=== PATIENT | female | born 1990 | race Caucasian/White ===

== ENCOUNTER 2017-03-08 19:18 | Emergency (ER) | payer MEDICAID ==
[2017-03-08 19:33] VITALS: BP 145/77
--- NOTE | 2017-03-08 19:45 | UC ---
Skin Complaint HPI - HPI Summary HPI Summary: 27 year old female presents with complains of rash on her feet secondary to insect bites. - History of Current Complaint Chief Complaint: UCSkin Time Seen by Provider: 03/08/17 19:38 Stated Complaint: BUG BITES-THEN RASH, Hx Last Menstrual Period: 02/27/17 - Allergy/Home Medications Allergies/Adverse Reactions: Allergies Allergy/AdvReac Type Severity Reaction Status Date / Time Amoxicillin Allergy Severe SWOLLEN Verified 02/16/13 19:23 THROAT, VOMITING Penicillins [PCN] Allergy Vomiting Verified 02/16/13 19:23 Sulfa Drugs Allergy Swelling Verified 02/16/13 19:23 Of Face,Lips,& Throat "PAIN MED" Allergy Severe Vomiting Uncoded 02/16/13 19:23 Home Medications: Home Medications Multiple Vitamin [Multi Vitamin] 1 tab PO DAILY 03/08/17 [History Confirmed 09/23] Review of Systems Constitutional: Negative Skin: Other - excoriating rash on both feet Eyes: Negative ENT: Negative Respiratory: Negative Cardiovascular: Negative Gastrointestinal: Negative Genitourinary: Negative Motor: Negative Neurovascular: Negative Musculoskeletal: Negative Neurological: Negative Psychological: Negative All Other Systems Reviewed And Are Negative: Yes PMH/Surg Hx/FS Hx/Imm Hx Previously Healthy: Yes - Surgical History Surgical History: Yes Surgery Procedure, Year, and Place: Tonsillectomy & adenoidectomy c/sec - Social History Alcohol Use: None Substance Use Type: None Smoking Status (MU): Never Smoked Tobacco - Immunization History Most Recent Influenza Vaccination: unk Most Recent Tetanus Shot: unk Most Recent Pneumonia Vaccination: none Physical Exam Triage Information Reviewed: Yes Vital Signs: Initial Vital Signs Temp 36.9 C 03/08/17 19:31 Pulse 86 03/08/17 19:31 Resp 16 03/08/17 19:31 BP 145/77 03/08/17 19:31 Pulse Ox 100 03/08/17 19:31 Eye Exam: Normal ENT Exam: Normal Dental Exam: Normal Neck exam: Normal Neck: Positive: 1 Respiratory Exam: Normal Cardiovascular Exam: Normal Abdominal Exam: Normal Musculoskeletal Exam: Normal Neurological Exam: Normal Psychological Exam: Normal Skin: Positive: Other - excoriating rash on both feet Course/Dx - Diagnoses Provider Diagnoses: insect bilateral feet Discharge - Discharge Plan Condition: Stable Disposition: HOME Prescriptions: DOXYcycline CAP(*) [DOXYcycline 100MG CAP(*)] 100 mg PO BID #14 cap Methylprednisolone [Medrol Dosepak 4 MG*] 4 mg PO .SEE GONSALO INSTRUCTION #21 tab Triamcinolone 0.1% CREAM(NF) [Kenalog Cream 0.1%(NF)] 1 applic TOPICAL BID PRN # 90 gm PRN Reason: Itching Patient Education Materials: Insect Bite or Sting (ED) Referrals: Nena Oglesby MD [Primary Care Provider] - If Needed
== END 2017-03-08 19:53 | disposition home or self-care (01) ==
LOC: UCEAST 19:18
DX: S90.862A Insect bite (nonvenomous), left foot, initial encounter (principal); S90.861A Insect bite (nonvenomous), right foot, initial encounter; W57.XXXA Bitten or stung by nonvenomous insect and other nonvenomous arthropods, initial encounter; Y93.9 Activity, unspecified; Y92.9 Unspecified place or not applicable; Y99.9 Unspecified external cause status
CPT/HCPCS: 99212; G0463

== ENCOUNTER 2017-05-20 16:28 | Emergency (ER) | payer OTHER ==
[2017-05-20 16:36] VITALS: BP 136/72
--- NOTE | 2017-05-20 17:42 | RAD ---
INDICATION: Left wrist pain. TECHNIQUE: 3 views of the left wrist were obtained. FINDINGS: The bones are in normal alignment. No fracture is seen. Joint spaces appear maintained. IMPRESSION: NO EVIDENCE FOR FRACTURE, IF THE PATIENT'S SYMPTOMS PERSIST, RECOMMEND FOLLOW-UP IMAGING.
--- NOTE | 2017-05-28 17:23 | UC ---
Laura Lozada Thomas, scribed for Kina Rutledge DO on 05/20/17 at 1713 . Upper Extremity HPI - HPI Summary HPI Summary: The pt is a 27 y/o F [place] [facility] [place]/o left wrist pain s/p an injury that occurred three days ago. The patients pain suddenly began when she twisted her wrist while holding a heavy object while unloading a truck. Later on during the same day, the patient attempted to pick pack worker a coffee cup but was unable to and she heard a snap. The pt rates the pain 7/10. The pain is aggravated by movement and is alleviated by rest. She has no pain when she keeps her hand still. The patient has treated the pain with ibuprofen [employer]. She additionally c/ o numbness to her left hand fingertips. She denies F/S/C, cough, abd pain, or any other complaints. - History of Current Complaint Chief Complaint: UCUpperExtremity Stated Complaint: WRIST INJURY Hx Obtained From: Patient Hx Last Menstrual Period: 05/20/17 Onset/Duration: Sudden Onset, Lasting Days - injury was three days ago, Still Present Pain Intensity: 7 Pain Scale Used: 0-10 Numeric Location Of Pain: Is Discrete @ - left wrist Aggravating Factor(s): Movement Alleviating Factor(s): Nothing Associated Signs And Symptoms: Positive: Numbness/Tingling - numbness to her left hand fingertips - Allergies/Home Medications Allergies/Adverse Reactions: Allergies Allergy/AdvReac Type Severity Reaction Status Date / Time Amoxicillin Allergy Severe SWOLLEN Verified 02/16/13 19:23 THROAT, VOMITING Penicillins [PCN] Allergy Vomiting Verified 02/16/13 19:23 Sulfa Drugs Allergy Swelling Verified 02/16/13 19:23 Of Face,Lips,& Throat "PAIN MED" Allergy Severe Vomiting Uncoded 02/16/13 19:23 Home Medications: Home Medications Control Pill 05/20/17 [History] PMH/Surg Hx/FS Hx/Imm Hx Previously Healthy: Yes - NEGATIVE: DM, CO - Surgical History Surgical History: Yes Surgery Procedure, Year, and Place: Tonsillectomy & adenoidectomy c/sec - Family History Known Family History: Negative: Hypertension, Diabetes - Social History Alcohol Use: None Substance Use Type: None Smoking Status (MU): Never Smoked Tobacco - Immunization History Most Recent Influenza Vaccination: unk Most Recent Tetanus Shot: unk Most Recent Pneumonia Vaccination: none Review of Systems Constitutional: Other - NEGATIVE: fever Musculoskeletal: Other: - Wrist pain onset three days ago Is Patient Immunocompromised?: No All Other Systems Reviewed And Are Negative: Yes Physical Exam Triage Information Reviewed: Yes Appearance: Well-Appearing, No Pain Distress, Well-Nourished Vital Signs: Initial Vital Signs Temp 97.7 F 05/20/17 16:32 Pulse 83 05/20/17 16:32 Resp 18 05/20/17 16:32 BP 136/72 05/20/17 16:32 Pulse Ox 99 05/20/17 16:32 Vital Signs Reviewed: Yes Eyes: Positive: Conjunctiva Clear. Negative: Discharge ENT: Positive: Hearing grossly normal. Negative: Muffled/hoarse voice Neck exam: Normal Neck: Positive: Supple Respiratory: Positive: Lungs clear, Normal breath sounds, No respiratory distress, No accessory muscle use Cardiovascular: Positive: RRR, No Murmur Musculoskeletal Exam: Normal Neurological: Positive: Alert, Muscle Tone Normal Psychological Exam: Normal Psychological: Positive: Age Appropriate Behavior Skin Exam: Normal Skin: Positive: Other - Warm, dry, normal color Diagnostics - Radiology Wrist XR Xray Interpretation: No Acute Changes - NO EVIDENCE FOR FRACTURE, IF THE PATIENT 'S SYMPTOMS PERSIST, RECOMMEND FOLLOW-UP IMAGING. [facility] physician has read this report and agrees. Radiology Interpretation Completed By: Radiologist Upper Extremity Course/Dx - Course Course Of Treatment: The pt is a 27 y/o F c/o left wrist pain s/p an injury that occurred three days ago. Wrist XR is negative for fracture. Patient's pain will be treated as a suspected schaphoid fracture due to her extreme tenderness until she follows up with an orthopedist in a week. Medications reviewed this visit. High blood pressure noted. - Differential Dx/Diagnosis Provider Diagnoses: wrist sprain, r/o scaphoid fx, Elevated blood pressure without a diagnosis of hypertension, Discharge - Discharge Plan Condition: Stable Disposition: HOME Prescriptions: Naproxen TAB* [Naprosyn 250 mg TAB*] 500 mg PO BID #14 tab Patient Education Materials: Splint Care (ED), Suspected Fracture (ED), Wrist Sprain (ED) Referrals: Rajendra Whiting MD [Medical Doctor] - (follow up in 4-6 days for re- evaluation) Nena Oglesby MD [Primary Care Provider] - If Needed Additional Instructions: Your history and exam is suspicous for possible occult fracture of the scaphoid bone. This is a fracture that can have a bad outcome if not properly immobilized. So, we will treat this as a fracture until proven otherwise. That means that you must wear the splint 24 hours a day until the ortho provider tells you otherwise. It will take 5-7 days to establish whether or not your bone is fractured. ANTI-INFLAMMATORY MEDICATION: You have received a prescription for an antiinflammatory agent. This is an excellent, safe drug for pain control. In addition, it has potent antiinflammatory effects which are beneficial, especially in the treatment of injuries, arthritis, or tendonitis. It's best to take this medicine with food. Persons with ulcer disease or allergy to aspirin should notify their physician of this before taking this drug. Take the medication exactly as prescribed. Don't take additional doses unless instructed to do so by your doctor. If you develop wheezing, shortness of breath, hives, faintness, stomach pain, vomiting, or dark black stools, return for re-evaluation at once. Your blood pressure was elevated at this visit. That does not mean you have hypertension, it is probably due to your current condition. Please follow up with your primary care provider. The documentation as recorded by the Laura renteria Thomas accurately reflects the service I personally performed and the decisions made by me, Kina Rutledge DO.
== END 2017-05-20 18:06 | disposition home or self-care (01) ==
LOC: UCEAST 16:28
DX: S63.502A Unspecified sprain of left wrist, initial encounter (principal); X50.1XXA Overexertion from prolonged static or awkward postures, initial encounter; Y93.89 Activity, other specified; Y92.9 Unspecified place or not applicable; R03.0 Elevated blood-pressure reading, without diagnosis of hypertension; Z88.0 Allergy status to penicillin; Z88.2 Allergy status to sulfonamides
CPT/HCPCS: 99212; G0463

== ENCOUNTER 2017-10-26 09:51 | Emergency (ER) | payer OTHER ==
[2017-10-26 10:10] VITALS: BP 126/92
--- NOTE | 2017-10-26 10:54 | RAD ---
INDICATION: Productive cough. 2 views of the chest demonstrate no mediastinal shift. Heart is of normal size and configuration. Lung coats are clear. IMPRESSION: No active cardiopulmonary disease is noted.
--- NOTE | 2017-10-26 15:07 | UC ---
Main Lozada Angela, scribed for Raghav Rodriguez MD on 10/26/17 at 1027 . General HPI - HPI Summary HPI Summary: This pt is a 27 y/o female presenting to [facility] c/o productive cough, runny nose, and body aches for the last couple of days. She additionally notes fever. Pt has a history of exercise induced asthma. Denies sore throat, SOB, abd pain. Denies any other PMHx. Denies tobacco, alcohol, or drug use. - History of Current Complaint Chief Complaint: UCRespiratory Stated Complaint: RESP Time Seen by Provider: 10/26/17 09:56 Hx Obtained From: Patient Hx Last Menstrual Period: 10/12/17 Onset/Duration: Lasting Days, Still Present Timing: Constant Current Severity: Moderate Pain Intensity: 4 Aggravating: nothing Alleviating: nothing Associated Signs & Symptoms: Positive: Cough, Fever, Other - POS: runny nose, body aches. NEG: sore throat. Negative: Abdominal Pain, SOB - Allergy/Home Medications Allergies/Adverse Reactions: Allergies Allergy/AdvReac Type Severity Reaction Status Date / Time amoxicillin Allergy Swelling Verified 10/26/17 10:04 Of Face,Lips,& Throat Penicillins Allergy Swelling Verified 10/26/17 10:04 Of Face,Lips,& Throat Sulfa (Sulfonamide Allergy Swelling Verified 10/26/17 10:04 Antibiotics) Of Face,Lips,& Throat "PAIN MED" Allergy Severe Vomiting Uncoded 10/26/17 10:04 PMH/Surg Hx/FS Hx/Imm Hx Other Endocrine History: DENIES: diabetes Other Cardiovascular History: DENIES: HTN Respiratory History: Asthma - exercise induced - Surgical History Surgical History: Yes Surgery Procedure, Year, and Place: Tonsillectomy & adenoidectomy; ; [place] Teeth extraction - Family History Known Family History: Negative: Hypertension, Diabetes - Social History Alcohol Use: None Substance Use Type: None Smoking Status (MU): Never Smoked Tobacco - Immunization History Most Recent Influenza Vaccination: unk Most Recent Tetanus Shot: unk Most Recent Pneumonia Vaccination: none Review of Systems Constitutional: Fever Skin: Negative Eyes: Negative ENT: Nasal Discharge, Other - NEG: sore throat Respiratory: Cough Cardiovascular: Negative Gastrointestinal: Negative Genitourinary: Negative Motor: Negative Neurovascular: Negative Musculoskeletal: Negative Neurological: Negative Psychological: Negative Is Patient Immunocompromised?: No All Other Systems Reviewed And Are Negative: Yes Physical Exam - Summary Physical Exam Summary: VITAL SIGNS: Reviewed. GENERAL: Patient is a well-developed and nourished female who is lying comfortable in the stretcher. Patient is not in any acute respiratory distress. HEAD AND FACE: Normocephalic. Positive for runny nose. EYES: PERRLA, EOMI x 2. EARS: Hearing grossly intact. MOUTH: Oropharynx within normal limits. NECK: Supple, trachea is midline, no adenopathy, no JVD, no carotid bruit. CHEST: Symmetric, no tenderness at palpation LUNGS: Clear to auscultation bilaterally. No wheezing or crackles. CVS: Regular rate and rhythm, S1 and S2 present, no murmurs or gallops appreciated. ABDOMEN: Soft, non-tender. Bowel sounds are normal. No abdominal abnormal pulsations. EXTREMITIES: Full ROM in all major joints, no edema, no cyanosis or clubbing. NEURO: Alert and oriented x 3. No acute neurological deficits. Speech is normal and follows commands. SKIN: Dry and warm Triage Information Reviewed: Yes Vital Signs: Initial Vital Signs Temp 98.1 F 10/26/17 10:05 Pulse 78 10/26/17 10:05 Resp 16 10/26/17 10:05 BP 126/92 10/26/17 10:05 Pulse Ox 100 10/26/17 10:05 Vital Signs Reviewed: Yes Diagnostics - Radiology Chest XR Xray Interpretation: No Acute Changes - IMPRESSION: No active cardiopulmonary disease is noted. Dr. Rodriguez has reviewed this radiology report. Radiology Interpretation Completed By: Radiologist Re-Evaluation - Re-Evaluation First Eval Re-Evaluation Time: 10:59 Comment: I reviewed the test and XR results with the pt. Course/Dx - Course Course Of Treatment: This pt is a 27 y/o female presenting to [facility] c/o productive cough, runny nose, and body aches for the last couple of days. She additionally notes fever. Pt has a history of exercise induced asthma. Denies any other PMHx. Denies tobacco, alcohol, or drug use. Chest XR shows no active cardiopulmonary disease is noted. Influenza A and B are both negative. I discussed all the findings and test results with the patient. Pt was instructed to return to the urgent care or go to ER immediately if any of the symptoms return or worsens. Plan of care was discussed with the patient and pt understands and agrees. All questions were answered to patient satisfaction. There were no further complaints or concerns. Pt will be discharged to home with follow up from PCP. She was given a prescription for Tessalon Perles. Pt is hemodynamically stable, alert and oriented x3. The patient was found to have increased blood pressure in UC. The patient will follow up with PCP for better control of BP. - Differential Dx - Multi-Symptom Provider Diagnoses: Cough. Upper respiratory infection Discharge - Sign-Out/Discharge Documenting (check all that apply): Discharge - Discharge Plan Condition: Stable Disposition: HOME Prescriptions: Benzonatate CAP* [Tessalon 100 MG CAP*] 100 mg PO TID PRN #12 cap PRN Reason: Cough Patient Education Materials: Upper Respiratory Infection (DC) Referrals: Nena Oglesby MD [Primary Care Provider] - Additional Instructions: FOLLOW UP WITH YOUR PRIMARY CARE PROVIDER WITHIN ONE WEEK FOR HIGH BLOOD PRESSURE NOTED TODAY. RETURN TO URGENT CARE OR THE ED FOR ANY WORSENING OR NEW SYMPTOMS. The documentation as recorded by the Main renteria Angela accurately reflects the service I personally performed and the decisions made by , Raghav Rodriguez MD.
== END 2017-10-26 11:08 | disposition home or self-care (01) ==
LOC: UCEAST 09:51
DX: R05 Cough (principal); J06.9 Acute upper respiratory infection, unspecified; Z88.3 Allergy status to other anti-infective agents; Z88.0 Allergy status to penicillin; Z88.2 Allergy status to sulfonamides
CPT/HCPCS: 71046; 87502; 99212; G0463

== ENCOUNTER 2018-01-30 18:06 | Emergency (ER) | payer OTHER ==
[2018-01-30 20:07] LABS: Urine Appearance Clear; Urine Blood 3+ (Negative); Urine Color Yellow; Urine Ketones 1+ (Negative); Urine Protein 1+(30 mg/dL) (Negative); Urine Urobilinogen Negative (Negative)
[2018-01-30 20:11] LABS: ABS Basophils 0.1 10^3/ul (0-0.2); ABS Eosinophils 0.1 10^3/ul (0-0.6); ABS Lymphocytes 2.7 10^3/ul (1.0-4.8); ABS Monocytes 0.7 10^3/ul (0-0.8); ABS Neutrophils 7.6 10^3/ul (1.5-7.7); ABS Nucleated RBC 0 10^3/ul; Eosinophil % 0.8 % (0-6); Hematocrit 42 % (35-47); Hemoglobin 14.2 g/dl (12.0-16.0); Mean Corpuscular HGB Conc 34 g/dl (31-36); Mean Corpuscular Hemoglobin 28 pg (27-31); Mean Corpuscular Volume 82 fL (80-97); Mean Platelet Volume 7.7 um3 (7.4-10.4); Nucleated Red Blood Cells % 0.1; Platelet Count 341 10^3/ul (150-450); Red Blood Count 5.12 10^6/ul (4.00-5.40); Red Cell Distribution Width 14 % (10.5-15); White Blood Count 11.1 10^3/ul (3.5-10.8)
[2018-01-30 20:32] LABS: EGFR Non-African American 72.9 (>60)
[2018-01-30 22:16] VITALS: BP 118/83
--- NOTE | 2018-01-31 05:41 | ED ---
Grant Lozada Jacob, scribed for Inessa Rich MD on 01/30/18 at 2132 . GI/ HPI - HPI Summary HPI Summary: Pt is a 27 y/o female presenting to ED c/o vaginal bleeding. Bleeding began a week ago and states that it has been constant since onset. She notes suprapubic pain which she describes as "pinching" and waxing and waning. She takes control pills. Her control pill cycle regimen is to take pills for two months straight and then go a week without taking pills. She states that she has never experienced vaginal bleeding while taking her current regimen of control pills. Pt believes her LNMP was sometime in December and is not . - History of Current Complaint Chief Complaint: EDVaginalBleeding Time Seen by Provider: 01/30/18 21:20 Stated Complaint: HEAVY BLEEDING Hx Obtained From: Patient Hx Last Menstrual Period: 10/12/17 Onset/Duration: Started Weeks Ago - 1 week ago Timing: Constant Current Severity: Moderate Pain Intensity: 5 Location of Pain: Suprapubic Pain Characteristics: Other: - described as pinching Associated Signs and Symptoms: Positive: Negative Aggravating Factor(s): Nothing Alleviating Factor(s): Nothing - Allergy/Home Medications Allergies/Adverse Reactions: Allergies Allergy/AdvReac Type Severity Reaction Status Date / Time amoxicillin Allergy Swelling Verified 01/30/18 18:39 Of Face,Lips,& Throat Penicillins Allergy Swelling Verified 01/30/18 18:39 Of Face,Lips,& Throat Sulfa (Sulfonamide Allergy Swelling Verified 01/30/18 18:39 Antibiotics) Of Face,Lips,& Throat "PAIN MED" Allergy Severe Vomiting Uncoded 01/30/18 18:39 Home Medications: Home Medications l-Norgest/E.estradiol-E.estrad [Levonorgestrel/Ethinyl Es 0.15-0.03 &0.01 mg] 1 tab PO DAILY 01/30/18 [History Confirmed 01/30/18] PMH/Surg Hx/FS Hx/Imm Hx Endocrine/Hematology History: Denies: Hx Diabetes, Hx Thyroid Disease Cardiovascular History: Denies: Hx Hypertension Respiratory History: Denies: Hx Asthma, Hx Chronic Obstructive Pulmonary Disease (COPD) GI History: Denies: Hx Ulcer - Surgical History Surgery Procedure, Year, and Place: Tonsillectomy & adenoidectomy; ; [place] Teeth extraction Infectious Disease History: No Infectious Disease History: Denies: Hx Clostridium Difficile, Hx Hepatitis, Hx Human Immunodeficiency Virus (HIV), Hx of Known/Suspected MRSA, Hx Shingles, Hx Tuberculosis, Hx Known/ Suspected VRE, Hx Known/Suspected VRSA, History Other Infectious Disease, Traveled Outside the [place] in Last 30 Days - Family History Known Family History: Negative: Hypertension, Diabetes - Social History Alcohol Use: None Substance Use Type: Reports: None Smoking Status (MU): Never Smoked Tobacco Review of Systems Negative: Fever Positive: pain - suprapubic pain, other - vaginal bleeding All Other Systems Reviewed And Are Negative: Yes Physical Exam - Summary Physical Exam Summary: VITAL SIGNS: Reviewed. GENERAL: Patient is a well-developed and nourished female who is lying comfortable in the stretcher. Patient is not in any acute respiratory distress. HEAD AND FACE: No signs of trauma. No ecchymosis, hematomas or skull depressions. No sinus tenderness. EYES: PERRLA, EOMI x 2, No injected conjunctiva, no nystagmus. EARS: Hearing grossly intact. Ear canals and tympanic membranes are within normal limits. MOUTH: Oropharynx within normal limits. NECK: Supple, trachea is midline, no adenopathy, no JVD, no carotid bruit, no c- spine tenderness, neck with full ROM. CHEST: Symmetric, no tenderness at palpation LUNGS: Clear to auscultation bilaterally. No wheezing or crackles. CVS: Regular rate and rhythm, S1 and S2 present, no murmurs or gallops appreciated. ABDOMEN: Soft, non-tender. No signs of distention. No rebound no guarding, and no masses palpated. Bowel sounds are normal. EXTREMITIES: FROM in all major joints, no edema, no cyanosis or clubbing. NEURO: Alert and oriented x 3. No acute neurological deficits. Speech is normal and follows commands. SKIN: Dry and warm Triage Information Reviewed: Yes Vital Signs On Initial Exam: Initial Vitals Temp Pulse Resp BP Pulse Ox 96.6 F 84 17 138/95 100 01/30/18 18:34 01/30/18 18:34 01/30/18 18:34 01/30/18 18:34 01/30/18 18:34 Vital Signs Reviewed: Yes Diagnostics - Vital Signs Vital Signs Temp Pulse Resp BP Pulse Ox 06/26/18 20:37 99.3 F 87 18 133/88 100 01/30/18 18:34 96.6 F 84 17 138/95 100 - Laboratory Lab Results: Lab Results 01/30/18 01/30/18 01/30/18 Range/Units 19:40 20:02 20:02 WBC 11.1 H (3.5-10.8) 10^3/ul RBC 5.12 (4.00-5.40) 10^6/ul Hgb 14.2 (12.0-16.0) g/dl Hct 42 (35-47) % MCV 82 (80-97) fL MCH 28 (27-31) pg MCHC 34 (31-36) g/dl RDW 14 (10.5-15) % Plt Count 341 (150-450) 10^3/ul MPV 7.7 (7.4-10.4) um3 Neut % (Auto) 68.4 (38-83) % Lymph % (Auto) 24.0 L (25-47) % [place] % (Auto) 6.2 (0-7) % Eos % (Auto) 0.8 (0-6) % Baso % (Auto) 0.6 (0-2) % Absolute Neuts (auto) 7.6 (1.5-7.7) 10^3/ul Absolute Lymphs (auto) 2.7 (1.0-4.8) 10^3/ul Absolute Monos (auto) 0.7 (0-0.8) 10^3/ul Absolute Eos (auto) 0.1 (0-0.6) 10^3/ul Absolute Basos (auto) 0.1 (0-0.2) 10^3/ul Absolute Nucleated RBC 0 10^3/ul Nucleated RBC % 0.1 Sodium 139 (135-145) mmol/L Potassium 3.6 (3.5-5.0) mmol/L Chloride 105 (101-111) mmol/L Carbon Dioxide 25 (22-32) mmol/L Anion Gap 9 (2-11) mmol/L BUN 9 (6-24) mg/dL Creatinine 0.93 (0.51-0.95) mg/dL Est GFR ( Amer) 88.2 (>60) Est GFR (Non-Af Amer) 72.9 (>60) BUN/Creatinine Ratio 9.7 (8-20) Glucose 87 (70-100) mg/dL Calcium 9.5 (8.6-10.3) mg/dL Total Bilirubin 0.40 (0.2-1.0) mg/dL AST 21 (13-39) U/L ALT 34 (7-52) U/L Alkaline Phosphatase 97 (34-104) U/L Total Protein 8.0 (6.4-8.9) g/dL Albumin 4.3 (3.2-5.2) g/dL Globulin 3.7 (2-4) g/dL Albumin/Globulin Ratio 1.2 (1-3) Beta HCG, Quant < 0.60 mIU/mL Urine Color Yellow Urine Appearance Clear Urine pH 5.0 (5-9) Ur Specific [place] 1.030 (1.010-1.030) Urine Protein 1+(30 mg/dl) A (Negative) Urine Ketones 1+ A (Negative) Urine Blood 3+ A (Negative) Urine Nitrate Negative (Negative) Urine Bilirubin Negative (Negative) Urine Urobilinogen Negative (Negative) Ur Leukocyte Esterase Negative (Negative) Urine WBC (Auto) Trace(0-5/hpf) (Absent) Urine RBC (Auto) 2+(6-10/hpf) A (Absent) Ur Squamous Epith Cells Present A (Absent) Urine Bacteria Absent (Absent) Urine Glucose Negative (Negative) Result Diagrams: 01/30/18 20:02 01/30/18 20:02 Lab Statement: Any lab studies that have been ordered have been reviewed, and results considered in the medical decision making process. GIGU Course/Dx - Course Assessment/Plan: Pt is a 27 y/o female presenting to ED w/ constant vaginal bleeding for a week with suprapubic pain described as "pinching" and waxing and waning in intensity. She takes control pills and has never experienced vaginal bleeding while taking her current regimen of control pills. Pt believes her LNMP was sometime in December and is not . Blood work and UA done, with reuslts including a WBC of 11.1 Urine culture sent. Pt diagnosed w/ dysfunctional uterine bleeding, discharged to home and told to follow up w/ established OBGYN. Allergies noted. - Diagnoses Provider Diagnoses: Dysfunctional uterine bleeding Discharge - Sign-Out/Discharge Documenting (check all that apply): Discharge/Admit/Transfer - discharge - Discharge Plan Condition: Stable Disposition: HOME Patient Education Materials: Dysfunctional Uterine Bleeding (ED) Referrals: No Primary Care Phys,NOPCP [Primary Care Provider] - [facility] [facility] [place]] - 2 Days Additional Instructions: Return to ED for any new or worsening symptoms. Follow up with previously established OBGYN as soon as possible The documentation as recorded by the Grant renteria Jacob accurately reflects the service I personally performed and the decisions made by Layla buchanan Abdul, MD.
== END 2018-01-30 22:15 | disposition home or self-care (01) ==
LOC: ED 18:06
DX: N93.8 Other specified abnormal uterine and vaginal bleeding (principal); Z88.0 Allergy status to penicillin; Z88.2 Allergy status to sulfonamides; Z88.8 Allergy status to other drugs, medicaments and biological substances
CPT/HCPCS: 36415; 80053; 81003; 81015; 84702; 85025; 87086; 99282

== ENCOUNTER 2020-10-26 07:45 | Inpatient (IN) ==
[2020-10-28] MEDS ORDERED: Sodium Citrate/Citric Acid LIQ 15 ML UDC ONE (06:24)
[2020-10-28] MEDS ORDERED: Sodium Citrate/Citric Acid LIQ 15 ML UDC PO ONE (07:09)
[2020-10-28] MEDS ORDERED: Oxytocin 10 UNITS/ML 1 ML VIAL ONE (07:23)
[2020-10-28] MEDS ORDERED: Sterile Water for Inj 10 ML ONE (07:23)
[2020-10-28] MEDS ORDERED: Ondansetron 4 mg VIAL 2 MG/ML 2 ml VIAL ONE (07:23)
[2020-10-28] MEDS ORDERED: Morphine PF AMP (0.5MG/ML) 5 MG/10 ML AMP ONE (07:23)
[2020-10-28] MEDS ORDERED: EPHEDrine (Pressors) 50 MG/ML VIAL ONE (07:23)
[2020-10-28] MEDS ORDERED: Phenylephrine 40 mcg/mL 10mL (400mcg) SYRINGE ONE ×2 (07:27→08:44)
[2020-10-28] MEDS ORDERED: ceFOXitin 2 GM PREMIX 50 ML IVPB ONE (08:00)
[2020-10-28] MEDS ORDERED: diPHENhydraMINE IV 50 MG/ML 1 ml VIAL (BENADRYL) IV PRN (08:53)
[2020-10-28] MEDS ORDERED: Ondansetron 4 mg VIAL 2 MG/ML 2 ml VIAL IV PRN (08:53)
[2020-10-28] MEDS ORDERED: Naloxone 0.4 mg VIAL 0.4 mg/ml 1 ml VIAL IV PRN (08:53)
[2020-10-28] MEDS ORDERED: Acetaminophen IV 1 GM/100ML 1,000 MG/100 ML VIAL IVPB PRN (08:55)
[2020-10-28] MEDS ORDERED: Dibucaine 1% OINT 28.35 GM TUBE PR PRN (09:32)
[2020-10-28] MEDS ORDERED: Glycerin ADULT 2.4 gm SUPP PR PRN (09:32)
[2020-10-28] MEDS ORDERED: Witch Hazel PAD JAR TOPICAL PRN (09:32)
[2020-10-28] MEDS ORDERED: Lactated Ringers 1000 ml BAG 1,000 ML IV SCH (10:00)
[2020-10-28] MEDS ORDERED: Oxytocin in LR 20 UNITS/1,000 ML BAG IVPB SCH (10:00)
[2020-10-28 10:49] LABS: Urine Benzodiazepine Screen None Detected (None Detect); Urine Opiates Screen None Detected (None Detect)
[2020-10-28 13:45] LABS: Urine Appearance Cloudy; Urine Bacteria Absent (Absent); Urine Bilirubin Negative (Negative); Urine Blood Negative (Negative); Urine Color Yellow; Urine Glucose Negative (Negative); Urine Ketones Negative (Negative); Urine Nitrite Negative (Negative); Urine Protein Negative (Negative); Urine Red Blood Cell 3+(>10/hpf) (Absent); Urine Specific Gravity 1.014 (1.010-1.030); Urine Squamous Epithelial Cell Present (Absent); Urine Urobilinogen Negative (Negative); Urine White Blood Cell Trace(0-5/hpf) (Absent)
[2020-10-29 06:36] LABS: ABS Eosinophils 0.1 10^3/ul (0-0.6); ABS Lymphocytes 1.3 10^3/ul (1.0-4.8); ABS Monocytes 1.1 10^3/ul (0-0.8); ABS Neutrophils 9.8 10^3/ul (1.5-7.7); Eosinophil % 0.9 %; Hematocrit 28 % (35-47); Lymphocyte % 10.6 %; Mean Corpuscular HGB Conc 33 g/dL (31-36); Mean Corpuscular Hemoglobin 25 pg (27-31); Mean Corpuscular Volume 76 fL (80-97); Mean Platelet Volume 7.6 fL (7.4-10.4); Platelet Count 294 10^3/uL (150-450); Red Blood Count 3.64 10^6 /uL (3.70-4.87); Red Cell Distribution Width 15 % (10-15); White Blood Count 12.4 10^3/uL (3.5-10.8)
[2020-10-30 08:11] VITALS: BP 134/76
== END 2020-10-30 13:02 | disposition home or self-care (01) | DRG 540 ==
LOC: MCHOB 10-28 05:49
PROVIDERS: ADMIT Obstetrics & Gynecology; ATTEND Obstetrics & Gynecology

== ENCOUNTER 2022-04-29 05:42 | Inpatient (IN) ==
[~2022-04-29 05:42] MED LIST: Clindamycin 900 MG/D5W BAG 900 MG/50 ML BAG IVPB SCH
[2022-04-29] MEDS ORDERED: Metoclopramide 5 MG/ML VIAL (10 mg) IV PRN (06:47)
[2022-04-29] MEDS ORDERED: Acetaminophen IV 1 GM/100ML 1,000 MG/100 ML BAG IV PRN (06:47)
[2022-04-29] MEDS ORDERED: Ondansetron 4 mg VIAL 2 MG/ML 2 ml VIAL IV PRN (06:47)
[2022-04-29] MEDS ORDERED: Naloxone 0.4 mg VIAL 0.4 mg/ml 1 ml VIAL IV PUSH PRN (06:47)
[2022-04-29] MEDS ORDERED: Clindamycin 900 MG/D5W BAG 900 MG/50 ML BAG IVPB ONE (07:14)
[2022-04-29] MEDS ORDERED: Sodium Citrate/Citric Acid LIQ 15 ML UDC ONE ×2 (07:21→07:22)
[2022-04-29] MEDS ORDERED: Morphine PF AMP (0.5MG/ML) 5 MG/10 ML AMP ONE (07:28)
[2022-04-29] MEDS ORDERED: Oxytocin 10 UNITS/ML 1 ML VIAL ONE ×2 (07:29→09:59)
[2022-04-29] MEDS ORDERED: Ondansetron 4 mg VIAL 2 MG/ML 2 ml VIAL ONE (07:29)
[2022-04-29] MEDS ORDERED: Dexamethasone IV 4 MG/ML VIAL 1 ml VIAL ONE (07:29)
[2022-04-29 07:39] LABS: Hematocrit 31 % (35-47); Hemoglobin 9.6 g/dL (12.0-16.0); Mean Corpuscular HGB Conc 31 g/dL (31-36); Mean Corpuscular Hemoglobin 23 pg (27-31); Mean Corpuscular Volume 74 fL (80-97); Platelet Count 377 10^3/uL (150-450); Red Cell Distribution Width 17 % (10-15); White Blood Count 13.3 10^3/uL (3.5-10.8)
[2022-04-29] MEDS ORDERED: Gentamicin ADULT 225 MG in NS 0.9% 100 ml BAG 100 ML IVPB ONE (08:00)
[2022-04-29] MEDS ORDERED: Phenylephrine 40 mcg/mL 10mL (400mcg) SYRINGE ONE (08:23)
[2022-04-29 08:56] LABS: ABS Eosinophils 0.1 10^3/ul (0-0.6); ABS Lymphocytes 2.1 10^3/ul (1.0-4.8); ABS Monocytes 0.9 10^3/ul (0-0.8); ABS Neutrophils 10.2 10^3/ul (1.5-7.7); Eosinophil % 0.5 %; Lymphocyte % 15.7 %
[2022-04-29 08:57] LABS: Hypochromasia 2+; Microcytosis 2+
[2022-04-29] MEDS ORDERED: Levalbuterol HFA INHALER MDI ONE (09:16)
[2022-04-29] MEDS ORDERED: Buffered Lidocaine 1% SYRIN 1 ml INTRADERM ONE (10:11)
[2022-04-29] MEDS ORDERED: Lactated Ringers 1000 ml BAG 1,000 ML IV ONE (10:11)
[2022-04-29] MEDS ORDERED: Glycerin ADULT 2.4 gm SUPP PR PRN (10:13)
[2022-04-29] MEDS ORDERED: Witch Hazel PAD JAR TOPICAL PRN (10:13)
[2022-04-29] MEDS ORDERED: Dibucaine 1% OINT 28.35 GM TUBE PR PRN (10:13)
[2022-04-29] MEDS ORDERED: Oxytocin in LR 20,000 MILLI.UNIT/1,000 ML BAG IV SCH (10:15)
[2022-04-29] MEDS ORDERED: Lactated Ringers 1000 ml BAG 1,000 ML IV SCH ×2 (11:00)
[2022-04-30 06:51] LABS: ABS Eosinophils 0.1 10^3/ul (0-0.6); ABS Lymphocytes 1.5 10^3/ul (1.0-4.8); ABS Monocytes 0.9 10^3/ul (0-0.8); ABS Neutrophils 9.6 10^3/ul (1.5-7.7); Eosinophil % 0.7 %; Hematocrit 27 % (35-47); Hemoglobin 8.4 g/dL (12.0-16.0); Lymphocyte % 12.5 %; Mean Corpuscular HGB Conc 32 g/dL (31-36); Mean Corpuscular Hemoglobin 23 pg (27-31); Mean Corpuscular Volume 73 fL (80-97); Mean Platelet Volume 7.8 fL (7.4-10.4); Platelet Count 285 10^3/uL (150-450); Red Blood Count 3.62 10^6 /uL (3.70-4.87); Red Cell Distribution Width 17 % (10-15); White Blood Count 12.1 10^3/uL (3.5-10.8)
[2022-04-30 13:49] LABS: Urine Benzodiazepine Screen None Detected (None Detect); Urine Cannabinoids Screen None Detected (None Detect); Urine Opiates Screen None Detected (None Detect)
[2022-05-01 10:14] VITALS: BP 138/89
== END 2022-05-01 13:23 | disposition home or self-care (01) | DRG 540 ==
LOC: MCHOB 05:42
PROVIDERS: ADMIT Obstetrics & Gynecology; ATTEND Obstetrics & Gynecology